=== PATIENT | male | born 1955 | race African-American/Black ===

== ENCOUNTER 2018-11-27 17:26 | Inpatient (IN) | payer OTHER ==
[~2018-11-27] VITALS: Ht 167.6 cm; Wt 64.0 kg
[~2018-11-27 17:26] MED LIST: AUG875 PO; Carvedilol PO; HYDR-3498 PO; IBUP800T48 PO; Isosorbide PO; LISI-313 PO; LISI-523 PO; METH500T PO; NITR0.4T39 SL; PANT40TA3 PO; SIMV20TA2 PO; TAMS-14 PO
[2018-11-27 20:30] VITALS: BP 108/66; PULSE 80; RESP 20; Ht 167.6 cm; Wt 64.0 kg
[2018-11-27] MEDS ORDERED: HYDROmorphONE 0.5 MG/0.5 ML SYG IV PRN (22:00)
[2018-11-27] MEDS ORDERED: BISACODYL (EC) 5 MG TAB PO PRN (22:00)
[2018-11-27] MEDS ORDERED: DOCUSATE SODIUM 100 MG CAP PO PRN (22:00)
[2018-11-27] MEDS ORDERED: NACL 0.9% 3 ML SYG IV SCH (22:00)
[2018-11-27] MEDS ORDERED: VANCOMYCIN 1 GM (PMX) 250 ML IVPB ONE (22:30)
[2018-11-27] MEDS: SOD CHLORIDE 0.9% 1,000 ML IV SCH (22:48)
[2018-11-28] VITALS: BP 99/58; PULSE 78; RESP 18
[2018-11-28] MEDS ORDERED: LORAZEPAM 2 MG INJ IV PRN (00:30)
[2018-11-28] MEDS ORDERED: SOD CHLORIDE 0.9% 500 ML IV ONE (02:30)
[2018-11-28] MEDS: PIPER-TAZO 3.375 GM IV (PMX) 100 ML IVPB SCH ×6 (03:22→23:16)
[2018-11-28] MEDS: SOD CHLORIDE 0.9% 1,000 ML IV SCH ×2 (03:50→08:22)
[2018-11-28 04:00] VITALS: BP 87/51; PULSE 76; RESP 17
[2018-11-28] MEDS ORDERED: VANCOMYCIN IV PER PHARMACY XX SCH (04:00)
[2018-11-28] MEDS: ALBUMIN HUMAN 25% 100 ML IV SCH ×2 (05:45→07:00)
[2018-11-28] MEDS: HEPARIN 5,000 UNIT/1 ML VIAL SC SCH ×3 (05:54→21:35)
[2018-11-28 07:34] VITALS: BP 90/55; PULSE 78; RESP 20
[2018-11-28] MEDS ORDERED: ENOXAPARIN 40 MG/0.4 ML SYG SC SCH (09:00)
[2018-11-28 11:00] VITALS: BP 87/52; PULSE 79; RESP 20
[2018-11-28] MEDS ORDERED: POTASSIUM CHLORIDE (SR) 20 MEQ TAB PO STA (13:09)
[2018-11-28] MEDS: morphine 2 MG INJ IV PRN ×2 (13:22→19:38)
[2018-11-28] MEDS ORDERED: LORAZEPAM 0.5 MG TAB PO PRN (14:00)
[2018-11-28] MEDS: THIAMINE 100 MG TAB PO SCH (14:32)
[2018-11-28] MEDS: FOLIC ACID 1 MG TAB PO SCH (14:33)
[2018-11-28] MEDS: POTASSIUM CHLORIDE 10 MEQ in SOD CHLORIDE 0.9% 1,000 ML IV SCH ×3 (14:33→22:03)
[2018-11-28] MEDS: VANCOMYCIN 750 MG (PMX) 250 ML IVPB SCH (15:16)
[2018-11-28 15:28] VITALS: BP 104/62; PULSE 70; RESP 20
[2018-11-28 20:00] VITALS: BP 102/64; PULSE 77; RESP 19
[2018-11-28] MEDS ORDERED: BENZOCAINE 10% 7 GM GEL MM PRN ×2 (21:00→21:30)
[2018-11-29] VITALS (8 sets, daily range): BP systolic 91–114; BP diastolic 51–72; PULSE 70–80; RESP 18–20
[2018-11-29] MEDS: VANCOMYCIN 750 MG (PMX) 250 ML IVPB SCH ×2 (03:11→15:36)
[2018-11-29] MEDS: POTASSIUM CHLORIDE 10 MEQ in SOD CHLORIDE 0.9% 1,000 ML IV SCH ×4 (05:10→20:46)
[2018-11-29] MEDS: PIPER-TAZO 3.375 GM IV (PMX) 100 ML IVPB SCH ×5 (05:15→23:39)
[2018-11-29] MEDS: HEPARIN 5,000 UNIT/1 ML VIAL SC SCH ×2 (05:32→15:48)
[2018-11-29] MEDS: ACETAMINOPHEN 325 MG TAB PO PRN (05:41)
[2018-11-29] MEDS: THIAMINE 100 MG TAB PO SCH (09:49)
[2018-11-29] MEDS: FOLIC ACID 1 MG TAB PO SCH (09:49)
[2018-11-29] MEDS ORDERED: ZINC SULFATE 220 MG CAP ONE (18:20)
[2018-11-29] MEDS: ZINC SULFATE 220 MG CAP PO SCH (18:23)
[2018-11-29] MEDS: NICOTINE (14 MG/24 HR) PATCH TRANSDERM SCH (18:30)
[2018-11-29] MEDS: morphine 2 MG INJ IV PRN ×2 (18:50→23:23)
[2018-11-29] MEDS: FAMOTIDINE 20 MG TAB PO SCH (20:45)
[2018-11-29] MEDS: TAMSULOSIN (SR) 0.4 MG CAP PO SCH (20:45)
[2018-11-29] MEDS: ISOSORBIDE DINITRATE 10 MG TAB PO SCH (20:45)
[2018-11-29] MEDS ORDERED: ISOSORBIDE PO SCH (21:00)
[2018-11-30] MEDS: VANCOMYCIN 750 MG (PMX) 250 ML IVPB SCH ×2 (04:30→15:39)
[2018-11-30] MEDS: PIPER-TAZO 3.375 GM IV (PMX) 100 ML IVPB SCH ×3 (05:42→18:40)
[2018-11-30 06:48] VITALS: BP 95/53; PULSE 60; RESP 14
[2018-11-30] MEDS: ZINC SULFATE 220 MG CAP PO SCH (09:54)
[2018-11-30] MEDS: FOLIC ACID 1 MG TAB PO SCH (09:54)
[2018-11-30] MEDS: FAMOTIDINE 20 MG TAB PO SCH (09:54)
[2018-11-30] MEDS: THIAMINE 100 MG TAB PO SCH (09:54)
[2018-11-30] MEDS: ASPIRIN (EC) 81 MG TAB PO SCH (09:55)
[2018-11-30] MEDS: ENOXAPARIN 30 MG/0.3 ML SYG SC SCH (10:01)
[2018-11-30] MEDS: POTASSIUM CHLORIDE 10 MEQ in SOD CHLORIDE 0.9% 1,000 ML IV SCH (10:13)
[2018-11-30] MEDS: ISOSORBIDE DINITRATE 10 MG TAB PO SCH ×3 (10:13→20:26)
[2018-11-30] MEDS: morphine 2 MG INJ IV PRN (15:33)
[2018-11-30 16:12] VITALS: BP 125/62; PULSE 67; RESP 14
[2018-11-30] MEDS: NICOTINE (14 MG/24 HR) PATCH TRANSDERM SCH (18:30)
[2018-11-30] MEDS: TAMSULOSIN (SR) 0.4 MG CAP PO SCH (20:25)
[2018-11-30 20:30] VITALS: BP 122/57; PULSE 62; RESP 20
[2018-11-30] MEDS: PSYLLIUM 28% PACKET PO SCH (20:30)
[2018-12-01] MEDS: PIPER-TAZO 3.375 GM IV (PMX) 100 ML IVPB SCH ×5 (00:29→23:27)
[2018-12-01 02:30] VITALS: BP 127/66; PULSE 68; RESP 19
[2018-12-01] MEDS: VANCOMYCIN 1 GM 250 ML IVPB SCH ×2 (05:30→16:33)
[2018-12-01] MEDS: ENOXAPARIN 30 MG/0.3 ML SYG SC SCH (09:58)
[2018-12-01] MEDS: PSYLLIUM 28% PACKET PO SCH ×2 (09:58→21:04)
[2018-12-01] MEDS: THIAMINE 100 MG TAB PO SCH (09:58)
[2018-12-01] MEDS: ASPIRIN (EC) 81 MG TAB PO SCH (09:58)
[2018-12-01] MEDS: ISOSORBIDE DINITRATE 10 MG TAB PO SCH ×2 (09:59→21:03)
[2018-12-01] MEDS: FAMOTIDINE 20 MG TAB PO SCH (09:59)
[2018-12-01] MEDS: FOLIC ACID 1 MG TAB PO SCH (09:59)
[2018-12-01] MEDS: ZINC SULFATE 220 MG CAP PO SCH (09:59)
[2018-12-01] MEDS ORDERED: POTASSIUM CHLORIDE (SR) 20 MEQ TAB PO STA (11:05)
[2018-12-01] MEDS: morphine 2 MG INJ IV PRN (14:00)
[2018-12-01 14:54] VITALS: BP 114/63; PULSE 72; RESP 19
[2018-12-01] MEDS: CEPASTAT LOZENGE MT PRN ×2 (16:49→18:08)
[2018-12-01] MEDS: NICOTINE (14 MG/24 HR) PATCH TRANSDERM SCH (18:09)
[2018-12-01 19:00] VITALS: BP 134/63; PULSE 69; RESP 18
[2018-12-01] MEDS: TAMSULOSIN (SR) 0.4 MG CAP PO SCH (21:03)
[2018-12-01] MEDS: ACETAMINOPHEN 325 MG TAB PO PRN (21:46)
[2018-12-02] MEDS: VANCOMYCIN 1 GM 250 ML IVPB SCH ×2 (03:46→16:40)
[2018-12-02] MEDS: PIPER-TAZO 3.375 GM IV (PMX) 100 ML IVPB SCH ×4 (05:58→23:55)
[2018-12-02 07:18] VITALS: BP 120/60; PULSE 67; RESP 18
[2018-12-02] MEDS: ZINC SULFATE 220 MG CAP PO SCH (09:43)
[2018-12-02] MEDS: FAMOTIDINE 20 MG TAB PO SCH (09:43)
[2018-12-02] MEDS: ASPIRIN (EC) 81 MG TAB PO SCH (09:43)
[2018-12-02] MEDS: FOLIC ACID 1 MG TAB PO SCH (09:43)
[2018-12-02] MEDS: THIAMINE 100 MG TAB PO SCH (09:44)
[2018-12-02] MEDS: ISOSORBIDE DINITRATE 10 MG TAB PO SCH ×2 (09:44→20:50)
[2018-12-02] MEDS: PSYLLIUM 28% PACKET PO SCH ×2 (09:45→20:52)
[2018-12-02] MEDS: ENOXAPARIN 30 MG/0.3 ML SYG SC SCH (09:51)
[2018-12-02 14:00] VITALS: BP 115/56; PULSE 80; RESP 18
[2018-12-02] MEDS: ACETAMINOPHEN 325 MG TAB PO PRN (15:15)
[2018-12-02] MEDS: NICOTINE (14 MG/24 HR) PATCH TRANSDERM SCH (18:30)
[2018-12-02 19:53] VITALS: BP 105/80; PULSE 62; RESP 18
[2018-12-02] MEDS: morphine 2 MG INJ IV PRN (20:02)
[2018-12-02] MEDS: TAMSULOSIN (SR) 0.4 MG CAP PO SCH (20:51)
[2018-12-02] MEDS ORDERED: AL HYDROX/MG HYDROX/SIMETH 30 ML CUP PO PRN (22:30)
[2018-12-03] VITALS (17 sets, daily range): BP systolic 120–145; BP diastolic 60–78; PULSE 60–96; RESP 11–18
[2018-12-03] MEDS: ACETAMINOPHEN 325 MG TAB PO PRN (00:01)
[2018-12-03] MEDS: VANCOMYCIN 1 GM 250 ML IVPB SCH ×2 (04:02→15:11)
[2018-12-03] MEDS: PIPER-TAZO 3.375 GM IV (PMX) 100 ML IVPB SCH ×3 (06:12→18:00)
[2018-12-03] MEDS: ENOXAPARIN 30 MG/0.3 ML SYG SC SCH (08:00)
[2018-12-03] MEDS: FOLIC ACID 1 MG TAB PO SCH (08:37)
[2018-12-03] MEDS: THIAMINE 100 MG TAB PO SCH (08:37)
[2018-12-03] MEDS: ISOSORBIDE DINITRATE 10 MG TAB PO SCH ×2 (08:37→22:37)
[2018-12-03] MEDS: FAMOTIDINE 20 MG TAB PO SCH (08:38)
[2018-12-03] MEDS: ZINC SULFATE 220 MG CAP PO SCH (08:38)
[2018-12-03] MEDS: PSYLLIUM 28% PACKET PO SCH ×2 (08:39→21:00)
[2018-12-03] MEDS: ASPIRIN (EC) 81 MG TAB PO SCH (09:00)
[2018-12-03] MEDS: morphine 2 MG INJ IV PRN ×2 (10:45→16:35)
[2018-12-03] MEDS ORDERED: POTASSIUM CHLORIDE (SR) 20 MEQ TAB PO STA (14:43)
[2018-12-03] MEDS: NICOTINE (14 MG/24 HR) PATCH TRANSDERM SCH (18:30)
[2018-12-03] MEDS ORDERED: MIDAZOLAM 1 MG/ML 2 ML INJ ONE (18:59)
[2018-12-03] MEDS ORDERED: PROPOFOL 20 ML ONE (18:59)
[2018-12-03] MEDS ORDERED: LIDOCAINE 2% (SDV) 5 ML INJ ONE (18:59)
[2018-12-03] MEDS ORDERED: PROPOFOL 200 MG INJ ONE (19:00)
[2018-12-03] MEDS ORDERED: LIDOCAINE 1% (MPF) 30 ML INJ ONE (19:05)
[2018-12-03] MEDS ORDERED: MINERAL OIL LIGHT 10 ML VIAL ONE (19:05)
[2018-12-03] MEDS ORDERED: PHENYLephrine (100 MCG/ML) 10ML SYG ONE (19:44)
[2018-12-03] MEDS ORDERED: ONDANSETRON 4 MG INJ ONE (19:44)
[2018-12-03] MEDS ORDERED: EPHEDrine 25 MG/5 ML SYG ONE (19:44)
[2018-12-03] MEDS ORDERED: DEXAMETHASONE 4 MG/ML 5 ML INJ ONE (19:44)
[2018-12-03] MEDS ORDERED: FAMOTIDINE 20 MG INJ ONE (19:45)
[2018-12-03] MEDS ORDERED: HYDROmorphONE 2 MG/ML SYG ONE (19:51)
[2018-12-03] MEDS ORDERED: DIPHENHYDRAMINE 50 MG INJ IV PRN (21:00)
[2018-12-03] MEDS ORDERED: PROCHLORPERAZINE 10 MG INJ IV PRN (21:00)
[2018-12-03] MEDS ORDERED: hydrALAzine 20 MG INJ IV PRN (21:00)
[2018-12-03] MEDS ORDERED: HYDROmorphONE 1 MG/5 ML IV SYRINGE IV PRN ×3 (21:00)
[2018-12-03] MEDS ORDERED: LABETALOL HCL 20MG INJ IV PRN (21:00)
[2018-12-03] MEDS ORDERED: FENTAnyl 50 MCG/ML VIAL IV PRN ×3 (21:00)
[2018-12-03] MEDS ORDERED: MEPERIDINE 25 MG INJ IV PRN (21:00)
[2018-12-03] MEDS ORDERED: ONDANSETRON 4 MG INJ IV PRN (21:00)
[2018-12-03] MEDS: TAMSULOSIN (SR) 0.4 MG CAP PO SCH (22:37)
[2018-12-04] MEDS: PIPER-TAZO 3.375 GM IV (PMX) 100 ML IVPB SCH ×2 (00:06→05:46)
[2018-12-04 02:04] VITALS: BP 100/57; PULSE 80; RESP 17
[2018-12-04] MEDS: VANCOMYCIN 1 GM 250 ML IVPB SCH (03:39)
[2018-12-04] MEDS: ACETAMINOPHEN 325 MG TAB PO PRN (03:45)
[2018-12-04 08:00] VITALS: BP 115/55; PULSE 62; RESP 17
[2018-12-04] MEDS: PSYLLIUM 28% PACKET PO SCH (09:00)
[2018-12-04] MEDS: ASPIRIN (EC) 81 MG TAB PO SCH (09:26)
[2018-12-04] MEDS: FOLIC ACID 1 MG TAB PO SCH (09:26)
[2018-12-04] MEDS: ZINC SULFATE 220 MG CAP PO SCH (09:26)
[2018-12-04] MEDS: FAMOTIDINE 20 MG TAB PO SCH (09:26)
[2018-12-04] MEDS: THIAMINE 100 MG TAB PO SCH (09:26)
[2018-12-04] MEDS: ISOSORBIDE DINITRATE 10 MG TAB PO SCH (09:28)
[2018-12-04] MEDS: ENOXAPARIN 30 MG/0.3 ML SYG SC SCH (09:33)
[2018-12-04] MEDS: morphine 2 MG INJ IV PRN (09:52)
[2018-12-04 14:36] VITALS: BP 111/53; PULSE 73; RESP 17
== END 2018-12-04 15:35 | disposition home health service (06) | DRG 982 ==
LOC: TEL 20:50 → MS1 11-29 22:58 → 2NE 12-03 18:40
PROVIDERS: ADMIT Internal Medicine; ATTEND Internal Medicine
PROC: 0KBS0ZZ Excision of Right Lower Leg Muscle, Open Approach (ICD-10-PCS; 2018-12-03)
PROC: 0KBT0ZZ Excision of Left Lower Leg Muscle, Open Approach (ICD-10-PCS; principal; 2018-12-03 19:15)
DX: N17.0 Acute kidney failure with tubular necrosis (principal); M62.82 Rhabdomyolysis; L97.329 Non-pressure chronic ulcer of left ankle with unspecified severity; L97.319 Non-pressure chronic ulcer of right ankle with unspecified severity; L97.829 Non-pressure chronic ulcer of other part of left lower leg with unspecified severity; L97.819 Non-pressure chronic ulcer of other part of right lower leg with unspecified severity; F10.20 Alcohol dependence, uncomplicated; F15.10 Other stimulant abuse, uncomplicated; F17.200 Nicotine dependence, unspecified, uncomplicated; I10 Essential (primary) hypertension; I25.10 Atherosclerotic heart disease of native coronary artery without angina pectoris; E78.5 Hyperlipidemia, unspecified; K29.70 Gastritis, unspecified, without bleeding; D64.9 Anemia, unspecified; I87.2 Venous insufficiency (chronic) (peripheral); I73.9 Peripheral vascular disease, unspecified; R19.7 Diarrhea, unspecified; R60.9 Edema, unspecified; E86.0 Dehydration; Z95.1 Presence of aortocoronary bypass graft
CPT/HCPCS: 80048; 80053; 80061; 80202; 80307; 81001; 82306; 82550; 83036; 83735; 84100; 84443; 85025; 85610; 93922; 97110; 97162; 97530; 97542; J1100; J1170; J1644; J1650; J2250; J2270; J2370; J2405; J2543; J3010; J3370; J3480; J7030; J7040; P9047